=== PATIENT | male | born 1965 | race Caucasian/White ===

== ENCOUNTER 2017-10-01 20:25 | Emergency (ER) | payer OTHER ==
[~2017-10-01] VITALS: Ht 175.3 cm; Wt 86.2 kg
[~2017-10-01 20:25] MED LIST: ABILIFY15 M1 PO; ALPRAZOLAM0.25 M1 PO; AUGMENTIN 875-1 EACH PO; COLACE100 MG PO; FLEXERIL10 MG PO; FLUVOXAMINE MA100 M2 PO; IBUPROFEN800 M1 PO; PERCOCET 325 MG1 TAB PO; PERCOCET 5-3251 EACH PO; TOPAMAX50 M1 PO; TRAZODONE HCL150 M1 PO; VALIUM2 M1 PO
--- NOTE | 2017-10-01 21:29 | ED PSYCHIATRIC COMPLAINT ---
History of Present Illness General Chief Complaint: Psychiatric Related Complaint Stated Complaint: BIBA FOR PSYCH EVAL Source: patient, EMS, W10 Exam Limitations: no limitations Vital Signs & Intake/Output Vital Signs & Intake/Output Vital Signs Date Time Temp Pulse Resp B/P B/P Pulse O2 O2 Flow FiO2 Mean Ox Delivery Rate 10/01 2349 97.7 115 18 115/88 94 Room Air 10/01 2150 Room Air 10/01 2149 98.6 90 18 145/85 96 Room Air ED Intake and Output 10/02 0000 10/01 1200 Intake Total Output Total Balance Patient 190 lb Weight Weight Reported by Patient Measurement Method Allergies Coded Allergies: NO KNOWN ALLERGIES (UNKNOWN 04/16/17) Reconcile Medications Alprazolam 0.25 MG TABLET 1 TAB PO 4 TIMES/DAY MENTAL HEALTH (Reported) Amoxicillin/Potassium Clav (Augmentin 875-125 Tablet) 875 MG-125 MG TABLET 1 TAB PO BID dental Aripiprazole (Abilify) 15 MG TABLET 1 TAB PO DAILY MENTAL HEALTH (Reported) Fluvoxamine Maleate 100 MG TABLET 1 TAB PO BID MENTAL HEALTH (Reported) Ibuprofen 800 MG TABLET 1 TAB PO TID pain Oxycodone HCl/Acetaminophen (Percocet 5-325 MG Tablet) 5 MG-325 MG TABLET 1 TAB PO BID PRN pain Topiramate (Topamax) 50 MG TABLET 3 TAB PO QPM MENTAL HEALTH (Reported) Trazodone HCl 150 MG TABLET 1 TAB PO QPM SLEEP (Reported) Triage Nurses Notes Reviewed? yes HPI: Patient is a 52-year-old male with a past medical history significant for bipolar disorder, suicide attempts, that was brought in by ambulance to us for concern for his welfare. The patient's of an overdose recently and the patient has begun to self medicate with alcohol and cough syrup. The patient has a history of alcohol use disorder and suicide attempts, has admitted to 17 attempts. The patient hasn't drank alcohol for years but started again recently. The patient follows up with psychiatry at [facility] and apparently they were concerned for his welfare and called a clinician to evaluate his need for involuntary hospitalization for his own safety. The patient was only here previously for facial swelling in April 2017. He denies any thoughts about harming himself currently. (Cornelio PRASAD,Kaylee) Past History Travel History Traveled to [place] past 21 day No Medical History Neurological: NONE EENT: NONE Cardiovascular: NONE Respiratory: NONE Gastrointestinal: "BLOCKED INTESTINES" Hepatic: NONE Renal: NONE Musculoskeletal: NONE Psychiatric: anxiety, bipolar disease, depression Endocrine: NONE Blood Disorders: NONE Cancer(s): NONE PULMONOLOGY TECHNICIAN/Reproductive: NONE Tetanus Vaccine: 04/16/17 Surgical History Surgical History: non-contributory Psychosocial History Who do you live with Patient/Self Services at Home pt lives with ex- What is your primary language Burmese (Kaylee Grimes MD) Medical History Any Pertinent Medical History? see below for history Family History Hx Contributory? No (Amilcar Graves MD) Review of Systems Review of Systems Constitutional: Reports: no symptoms. Neurological/Psychological: Reports: see HPI. (Kaylee Grimes MD) Review of Systems EENTM: Reports: no symptoms. Respiratory: Reports: see HPI, cough. Cardiovascular: Reports: no symptoms. GI: Reports: no symptoms. Genitourinary: Reports: no symptoms. Musculoskeletal: Reports: no symptoms. Skin: Reports: no symptoms. Hematologic/Endocrine: Reports: no symptoms. Immunologic/Allergic: Reports: no symptoms. All Other Systems: Reviewed and Negative (Ely PRASAD,Amilcar Maede) Physical Exam Physical Exam General Appearance: well developed/nourished, intoxicated Head: atraumatic, normal appearance Neurological/Psychiatric: agitated, alert Appearance/Memory/Insight: appropriate appearance, denies illness, disheveled Behavoir/Eye Contact/Speech: belligerent, uncooperative, normal speech Thoughts/Hallucinations: normal thought pattern Cleared? (statement below) No Medical Clearance Statement * patient denies further consideration of suicide * outpt. psych referral * no evidence of toxic ingestion * on re-evaluation the patient is awake and alert with normal speech and normal gait. The patient is clinically sober and safe for discharge / detox referral SAD PERSONS SAD PERSONS Response Value Male Sex? yes 1 Depression/Hopelessness? yes 2 Previous Attempts/Psych Care yes 1 Excessive Ethanol/Drug Use? yes 1 Single//? yes 1 Organized/Serious Attempt yes 2 Social Support? has support 0 Total 8 SAD PERSONS Done? yes (Kaylee Grimes MD) Physical Exam Eyes: Bilateral: PERRL, EOMI. Ears, Nose, Throat: normal pharynx, normal ENT inspection, hearing grossly normal Neck: normal inspection, supple, full range of motion Respiratory: normal breath sounds, chest non-tender, no respiratory distress, lungs clear Cardiovascular: regular rate/rhythm, normal peripheral pulses Gastrointestinal: normal bowel sounds, soft, non-tender, no organomegaly Extremities: normal range of motion (Ely PRASAD,Amilcar Meade) Progress Differential Diagnosis: drug intoxication, drug overdose, drug withdrawal, electrolyte abnormality (Kaylee Grimes MD) Differential Diagnosis: drug intoxication, drug overdose, drug withdrawal, electrolyte abnormality Plan of Care: Orders Procedure Date/time Status XRY-CHEST XRAY, TWO VIEWS 10/01 2140 Active Patient is a 52-year-old male with a past medical history significant for bipolar disorder, suicide attempts, that was brought in by ambulance to us for concern for his welfare. His recently of an overdose and he has started drinking again. His vitals in the ED are normal. In the ED he blew an alcohol level of 148. We will keep him for 3 hours until his blood alcohol will have decreased to normal limits and reassess his suicidal ideation. At that time he will be allowed to be released. (Cornelio PRASAD,Kaylee) Diagnostic Imaging: Viewed by Me: Radiology Read. Discussed w/RAD: Radiology Read. CXR Impression: PATIENT: MARIA DE JESUS LARSEN JR PRESENT AGE: 52 PATIENT ACCOUNT NO: [id number] : 64 LOCATION: [facility] ORDERING PHYSICIAN: Amilcar Graves MD SERVICE DATE: 10/01/17-2140 EXAM TYPE: RAD - XRY-CHEST XRAY, TWO VIEWS EXAMINATION: CHEST 2 VIEWS CLINICAL INFORMATION: Cough. COMPARISON: None. TECHNIQUE: PA and lateral views of the chest were obtained. FINDINGS: The cardiac silhouette is not enlarged. The mediastinal and hilar contours are unremarkable. There are neither pleural effusions nor pneumothoraces. There are no consolidations. The osseous structures are unremarkable. IMPRESSION: No evidence for acute disease. DICTATED BY: Slade Hirsch MD DATE/TIME DICTATED:10/01/172228 INTERFACE CONTROL OFFICER:LENY DATE/TIME TRANSCRIBED:10/01/172228 CONFIDENTIAL, DO NOT COPY WITHOUT APPROPRIATE AUTHORIZATION. <Electronically signed in Other Vendor System> SIGNED BY: Slade Hirsch MD 10/01/172236 Comments: BREATHALYZER 147 UPON ARRIVAL. (Amilcar Graves MD) Departure Departure Condition: Stable Clinical Impression Primary Impression: Alcohol intoxication Qualifiers: Complication of substance-induced condition: uncomplicated Qualified Code: F10.920 - Alcohol use, unspecified with intoxication, uncomplicated Secondary Impressions: Depression Qualifiers: Depression Type: unspecified Qualified Code: F32.9 - Major depressive disorder, single episode, unspecified Referrals: Patient Has No Primary Care Dr (PCP/Family) Departure Forms: Customer Survey General Discharge Information (Kaylee Grimes MD) Departure Disposition: HOME OR SELF CARE Additional Instructions: Call 211 or return immediately to the emergency department for any concerns of harming yourself or anyone else. Follow-up with [facility]. Return for any concerns. Resident Co-Sign Statement Statement: ED Attending supervision documentation- [x] I saw and evaluated the patient. I have also reviewed all the pertinent lab results and diagnostic results. I agree with the findings and the plan of care as documented in the Resident's documentation. [x] I have reviewed the ED Record and agree with the Resident's documentation. [] Additions or exceptions (if any) to the Resident's note and plan are summarized below: [Patient states that he is staying with his daughter. Patient denies any suicidal or homicidal ideations. They did not mention any suicidal thoughts to the counselor. The counselor was just concerned because of his past history of suicide attempts. Patient is awake alert and oriented and is clinically sober. Patient contracts for safety. Patient is stable for discharge at this time.] (Amilcar Graves MD)
--- NOTE | 2017-10-01 22:37 | RADIOLOGY REPORT ---
EXAMINATION: CHEST 2 VIEWS CLINICAL INFORMATION: Cough. COMPARISON: None. TECHNIQUE: PA and lateral views of the chest were obtained. FINDINGS: The cardiac silhouette is not enlarged. The mediastinal and hilar contours are unremarkable. There are neither pleural effusions nor pneumothoraces. There are no consolidations. The osseous structures are unremarkable. IMPRESSION: No evidence for acute disease.
[2017-10-01 23:49] VITALS: BP 115/88
== END 2017-10-02 ==
LOC: ERH 20:25
DX: F10.129 Alcohol abuse with intoxication, unspecified (principal); F32.9 Major depressive disorder, single episode, unspecified
CPT/HCPCS: 71046; J1200; J1630